=== PATIENT | female | born 1945 | race African-American/Black ===

== ENCOUNTER 2019-02-07 10:26 | Emergency (ER) | payer BC, MEDICARE ==
[~2019-02-07] VITALS: Ht 167.6 cm; Wt 77.1 kg
--- NOTE | 2019-02-07 10:45 | NUR ---
ED Nurse Note: PT WALKED IN TO ER TODAY FROM HOME. AOX4. PT C/O RIGHT SIDED HEEL PAIN, 4/10 X 5 DAYS AGO. PT DENIES RECENT INJURY OR TRAUMA. FULL ROM OF EXTREMITY AND DIGITS, CIRCULATION AND SENSATION INTACT, CAP REFILL <3 SECONDS, MUSCLE STRENGTH 5/5, GAIT STEADY, AND SKIN CLEAN, DRY, AND INTACT. NO OBVIOUS INJURY. PT STATES SHE HAD AN EPISODE LIKE THIS MANY YEARS AGO AND THAT IT RESOLVED ON ITS OWN.
[2019-02-07 10:47] VITALS: BP 127/84
[2019-02-07] MEDS: Acetaminophen 500mg (ES) tab ORAL ONE ×2 (11:40→11:41)
--- NOTE | 2019-02-07 11:42 | NUR ---
ED Nurse Note: XRAY AT BEDSIDE.
--- NOTE | 2019-02-07 12:17 | Diagnostic Imaging Report ---
Indication: Foot Pain Comparison: None Findings: 3 views of the right foot were obtained. No acute fractures, malalignment, erosions or periostitis are identified. Soft tissue swelling is present. Vascular calcification noted.. There is a moderate thickening of the Achilles tendon suspected on the lateral view. Moderate ossification at the insertion noted. There is no obvious erosion involving the calcaneus. Impression: Suspected Achilles tendinopathy or tear. Please evaluate for this clinically. No acute fracture or plain film evidence for osteomyelitis.
[2019-02-07] MEDS ORDERED: VOLTAREN100 G1 TP (12:41)
[2019-02-07 12:49] VITALS: BP 124/82
--- NOTE | 2019-02-07 12:49 | NUR ---
ED Nurse Note: PT SITTING PEACEFULLY IN CHAIR IN NAD. AOX4. PRESCRIPTION AND DISCHARGE PAPERWORK EXPLAINED TO PT. PT VERBALIZES UNDERSTANDING AND ALL QUESTIONS ANSWERED. PRESCRIPTION AND DISCHARGE PAPERWORK GIVEN TO PT AND ID WRISTBAND REMOVED. PT WALKED OUT OF ER WITH STEADY GAIT AND ALL BELONGINGS.
--- NOTE | 2019-02-08 20:21 | Emergency Room Report ---
History of Present Illness General Chief Complaint: Pain Source: Patient Present Illness HPI Patient is a 73-year-old female presents after increased right-sided heel pain. Patient had noticed pain onset several days prior to arrival. Pain was worse with movement. She denies any recent trauma. She had noticed this becoming more swollen. She denies any fever. Patient states this is heard in the past but denies any current pain right now. Allergies: Coded Allergies: No Known Allergies (Unverified , 02/07/19) Patient History Past Medical History: see triage record Reviewed Nursing Documentation: PMH: Agreed; PSxH: Agreed Nursing Documentation-PMH Past Medical History: No History, Except For Hx Hypertension: Yes Review of Systems All Other Systems: negative except mentioned in HPI Physical Exam Vital Signs Date Time Temp Pulse Resp B/P (MAP) Pulse Ox O2 Delivery O2 Flow Rate FiO2 02/07/19 10:37 98.2 91 16 173/96 (121) 98 Room Air General Appearance: no apparent distress, alert, GCS 15, Chronically Ill Head: normocephalic, atraumatic ENT: hearing grossly normal, normal voice Neck: full range of motion, supple Respiratory: no respiratory distress, speaking full sentences Cardiovascular #1: normal inspection Musculoskeletal: no calf tenderness, other - slight swelling to right foot near achilles tendon, no erythema Neurologic: normal inspection, alert, oriented x3, responsive, line assigner III-XII nml as tested, motor strength/tone normal, normal gait Psychiatric: mood/affect normal Skin: no rash Medical Decision Making Diagnostic Impression: Primary Impression: Achilles tendinitis ER Course Patient presented for right heel pain. Differential diagnosis include was not limited to Achilles tendon injury, plantar fasciitis, arthritis among others. X -ray imaging of the right foot 2 views read by radiology showed thickening and spurring of the Achilles tendon consistent with tendinopathy. Patient appears to be stable for outpatient management. She was noted to be ambulatory without assistance. Patient advised to follow-up with primary care physician for recheck. Last Vital Signs Date Time Temp Pulse Resp B/P (MAP) Pulse Ox O2 Delivery O2 Flow Rate FiO2 02/07/19 12:49 98.3 82 16 124/82 98 Room Air Status: improved Disposition: HOME, SELF-CARE Condition: Stable Scripts Diclofenac Sodium (VOLTAREN) 100 Gm Gel..gram. 5 GM TP DAILY for pain, #100 GM Prov: Talon Lowe MD 02/07/19 Patient Instructions: Achilles Tendinitis Talon Lowe MD Feb 08, 2019 20:21
== END 2019-02-07 12:45 | disposition home or self-care (01) ==
LOC: EMR 11:05
DX: M76.61 Achilles tendinitis, right leg (principal); I10 Essential (primary) hypertension
CPT/HCPCS: 99283